=== PATIENT | male | born 1955 | race Caucasian/White ===

== ENCOUNTER 2017-07-12 11:19 | Outpatient (CLI) | payer OTHER ==
--- NOTE | 2017-07-12 12:29 | MRI ---
MRI LEFT SHOULDER WITHOUT CONTRAST: Date: 07/12/17 HISTORY: S49.92XD, injury left shoulder. Injury 6 weeks ago. Pain. COMPARISON: Shoulder radiographs dated 05/29/17. FINDINGS: Biceps Tendon: There is attrition of the extraarticular biceps tendon. No normal intraarticular biceps tendon is pre sent. Glenoid Labrum: There is a posterior labral tear involving the entire posterior labrum from posterior-superior to pos terior-inferior. Small posterior-superior paralabral cyst. Rotator Cuff: Full thickness, full width tear supraspinatus tendon with tendons retracted to the mid humeral head. There is a traction cyst greater tuberosity. Extensive interstitial tearing and volume loss at the in fraspinatus tendon with myotendinous intramuscular cyst. Same is true for the supraspinatus tendon wi th a myotendinous intramuscular cyst. Muscles: There is mild volume loss of the supraspinatus muscle, although evaluation is limited as the majority of the fibers are retracted. No significant fatty infiltration. Bones: No fracture or malalignment. Moderate degenerative disease of acromioclavicular joint. Normal glenoid version. IMPRESSION: 1. Full thickness, full width tear of supraspinatus tendon with fibers retracted to the mid humeral head. There is mild volume loss of supraspinatus muscle with minimal fatty infiltration. 2. Rupture of the intraarticular biceps tendon with the extraarticular biceps tendon atretic and sca rred to the intertrabecular groove. 3. Posterior labral tear, posterior-superior and posterior-inferior with a posterior-superior parala bral cyst. POS: [facility]
== END 2017-07-12 11:20 | disposition home or self-care (01) ==
LOC: MRI 11:19
PROVIDERS: ATTEND Nurse Practitioner Family
DX: S49.92XD Unspecified injury of left shoulder and upper arm, subsequent encounter (principal); S43.402A Unspecified sprain of left shoulder joint, initial encounter; S46.912A Strain of unspecified muscle, fascia and tendon at shoulder and upper arm level, left arm, initial encounter

== ENCOUNTER 2017-08-15 08:47 | Outpatient (CLI) | payer OTHER ==
[2017-08-15 10:02] LABS: #Basophils 0.1 thou/uL (0.0-0.2); #Eosinphils 0.4 thou/uL (0.0-0.7); #Lymphocytes 2.4 thou/uL (1.20-3.40); #Monocytes 0.5 thou/uL (0.11-0.59); #Neutrophils 2.9 thou/uL (1.40-6.50); %Basophils 1.9 % (0.0-1.0); %Eosinophils 6.1 % (0.0-10.0); %Lymphocytes 37.6 % (21.0-51.0); %Monocytes 8.4 % (0.0-10.0); Hemoglobin 16.7 g/dL (14.0-18.0); Mean Corpuscular HGB CONC 34.6 g/dL (32.0-36.0); Mean Corpuscular Hemoglobin 31.4 pg (27.0-31.0); Mean Corpuscular Volume 90.9 fl (80.0-94.0); Mean Platelet Volume 7.6 fL (7.4-10.4); Platelet Count 244 thou/uL (130-400); RBC Distribution Width 12.2 % (11.5-14.5); Red Blood Cell (RBC) Count 5.32 mill/uL (4.70-6.10); White Blood Cell (WBC) Count 6.3 thou/uL (4.8-10.8)
[2017-08-15 10:19] LABS: Anion Gap 12 mmol/L (10-20); BUN (Urea Nitrogen) 13 mg/dL (8.4-25.7); Calc. Creatinine Clearance 0 mL/min (70-130); Calcium 9.1 mg/dL (7.8-10.44); Carbon Dioxide 26 mmol/L (23-31); Chloride 105 mmol/L (98-107); Estimated GFR-MDRD 79; Glucose 105 mg/dL (80-115); Potassium 4.7 mmol/L (3.5-5.1); Sodium 138 mmol/L (136-145)
--- NOTE | 2017-08-15 15:45 | EKG ---
Test Reason : Blood Pressure : / mmHG Vent. Rate : 074 BPM Atrial Rate : 074 BPM P-R Int : 172 ms QRS Dur : 106 ms QT Int : 396 ms P-R-T Axes : 041 -07 038 degrees QTc Int : 439 ms Normal sinus rhythm Normal ECG No previous ECGs available Confirmed by WILLIE SALDIVAR ([id number]) on 08/15/2017 3:45:12 PM Referred By: IERO Confirmed By:WILLIE SALDIVAR
== END 2017-08-15 08:48 | disposition home or self-care (01) ==
LOC: LABBT 08:47
PROVIDERS: ATTEND Orthopaedic Surgery
DX: Z01.818 Encounter for other preprocedural examination (principal); M75.102 Unspecified rotator cuff tear or rupture of left shoulder, not specified as traumatic
CPT/HCPCS: 80048; 85025; 93005; 93010

== ENCOUNTER 2017-08-17 05:57 | Day surgery (SDC) | payer OTHER ==
[2017-08-15 09:00] VITALS: BMI 35.9
[2017-08-17] MEDS ORDERED: Vancomycin HCl 1.5 GM in Sodium Chloride 0.9% 250 ML 300 ML IVPB SCH (06:30)
[2017-08-17] MEDS ORDERED: CEFAZOLIN/Water 2 GM/20 ML SYRINGE ONE (06:36)
[2017-08-17] MEDS ORDERED: Fentanyl 100 MCG/2 ML VIAL ONE ×2 (06:38→07:25)
[2017-08-17] MEDS ORDERED: Midazolam HCl 2 mg/2 ml Vial ONE (06:38)
[2017-08-17] MEDS ORDERED: Lidocaine 1% w/Epinephrine 1:200K 30 ML VIAL ONE (06:38)
[2017-08-17] MEDS ORDERED: Zolpidem Tartrate 5 MG TAB PO PRN (07:16)
[2017-08-17] MEDS ORDERED: Ropivacaine 0.2% 550 ML 550 ML NERVE BLCK SCH (07:16)
[2017-08-17] MEDS ORDERED: Promethazine HCl 25 MG/ML VIAL IM PRN (07:16)
[2017-08-17] MEDS ORDERED: HYDROcodone/Acetaminophen 10/325 mg Tablet PO PRN ×2 (07:16)
[2017-08-17] MEDS ORDERED: Ondansetron HCl/PF 4 MG/2 ML Vial IVP PRN (07:16)
[2017-08-17] MEDS ORDERED: traMADol HCl 50 MG TAB PO PRN ×2 (07:16)
[2017-08-17] MEDS ORDERED: Ketorolac Tromethamine 30 MG/ML VIAL IVP PRN (07:16)
[2017-08-17] MEDS ORDERED: Fentanyl 100 MCG/2 ML VIAL IV PRN (07:17)
--- NOTE | 2017-08-17 10:45 | OP ---
DATE OF PROCEDURE: 08/17/2017 PREOPERATIVE DIAGNOSES: Left shoulder impingement, large rotator cuff tear, and biceps tendon tear w ith auto-tenodesis in the bicipital groove. POSTOPERATIVE DIAGNOSES: Left shoulder impingement, large rotator cuff tear, and biceps tendon tear with auto-tenodesis in the bicipital groove. PROCEDURE PERFORMED: Left shoulder open subacromial decompression followed by open rotator cuff repa ir. SURGEON: Vijay Aquino M.D. WIRE STRANDER: Thomas Borges PA-C. BLOOD LOSS: Less than 50 mL. COMPLICATIONS: None. He did have general anesthetic. He had a preoperative block. IMPLANTS: Include 2 titanium double-loaded rotator cuff anchors as well as two 4.75 BioComposite Swi veLock anchors for double row repair. These were all Ar[employer]rex devices. CONDITION: He did go to the recovery room in stable condition. INDICATIONS: A 61-year-old active male who has been having problems with pain and weakness in the le ft arm, was found to have a large rotator cuff tear and at this time opted to have surgery. OPERATIVE PROCEDURE: After all appropriate consent forms were explained and signed, he was taken to the operating room and at this time was given general anesthetic. Once the level of anesthesia was a ppropriate, he was placed in modified beach chair position with all bony prominences well-padded. Th e left shoulder and upper extremity were then prepped and draped in standard surgical fashion. Incis ion was made on top of the shoulder down through skin and the Bovie was used to coagulate any brisk v enous bleeding. The deltoid fascia was then opened sharply and dissection with a [place] was used to s plit the deltoid fibers in line to obtain access to the subacromial space. A Miller was placed und erneath the acromion and anterior and inferior acromioplasty was performed using the saw and the rasp . At this time, we were able to visualize our large rotator cuff tear. Bursal tissue was removed. At this time, we gained access to our rotator cuff tear. There was a large crescent-shaped tear incl uding the entire supraspinatus with significant retraction and this also went back into the infraspin atus tendon. Inside the joint, the humeral head and glenoid were found to be in good condition. The re was no attachment of the biceps tendon on top of the glenoid and the biceps was found to be auto t enodesed into the subacromial space. Therefore, we did not do anything else to the biceps tendon. Lew denis then used a combination of scissors and a 15 blade to cut off the entire edge of the rotator cuff t ear to give us good bleeding tissue. At this time, a rongeur and curet were used to clean off our in sertion site and we did remove approximately 5 mm of articular cartilage because this tear despite be ing mobilized from the inferior and superior surfaces was unable to be brought in anatomic position, but with no tension, it was able to be repaired approximately 5 mm medial. Once everything had been prepared, we then placed 2 [id number] sutures posteriorly to close a little dog-ear and followed by placing our two titanium anchors right off our new articular margin and running all the sutures thro ugh the cuff in mattress fashion. Once these were all tied, we then used two 4.75 SwiveLocks lateral ly for double row repair. Once this was done, the arm was taken through range of motion and was foun d to have a nice repair. No tension on the tendon repair with the arm at the side, and at this time, we thoroughly irrigated with saline solution followed by a running multiple Ethibond sutures through our deltoid tissue and up through the acromion for a tendon to bone repair. We open ran this with a running #1 Vicryl suture. We then thoroughly irrigated some more. We then used some 2-0 Vicryl and mehdi to close skin. A bulky sterile dressing was applied. The patient was then placed in a shou lder sling with an abduction pillow. He was awakened and taken to the recovery room in stable condit ion. All counts were correct at the end of the case. He received preoperative IV antibiotics.
== END 2017-08-17 12:47 | disposition home or self-care (01) ==
LOC: SDC 05:57
PROVIDERS: ATTEND Orthopaedic Surgery
PROC: 0LM20ZZ Reattachment of Left Shoulder Tendon, Open Approach (ICD-10-PCS; principal; 2017-08-17)
PROC: 0PB60ZZ Excision of Left Scapula, Open Approach (ICD-10-PCS; principal; 2017-08-17)
DX: M75.122 Complete rotator cuff tear or rupture of left shoulder, not specified as traumatic (principal); M75.42 Impingement syndrome of left shoulder; S46.119A Strain of muscle, fascia and tendon of long head of biceps, unspecified arm, initial encounter; Z98.890 Other specified postprocedural states
CPT/HCPCS: A4306; C1713; J2250; J2795; J3010; J3370; J7050

== ENCOUNTER 2018-07-19 08:59 | Outpatient (CLI) | payer OTHER ==
--- NOTE | 2018-07-19 11:18 | MRI ---
MRI OF RIGHT SHOULDER PERFORMED WITHOUT CONTRAST ENHANCEMENT: History: Shoulder pain since May, after patient fell on shoulder. FINDINGS: There are moderate AC joint hypertrophic changes present. There is a massive rotator cuff tear involv ing the entire supra and majority of the infra spinatus tendon. The tendon is retracted by approximat clarice 3.8 cm. The AP dimension of this tear is approximately 3.5 cm. The subscapularis tendon is intact . I do not identify any definite intraarticular portion of the biceps tendon. There appears to be a t iny tendon seen in the more distal aspect of the bicipital groove. There is some mild subscapularis muscle atrophy. The supra and infraspinatus muscles do not show any significant atrophic change. There are edema changes extending into the muscle belly of the infraspin atus. There is a fairly extensive labral tear. It begins at the superior labrum and extends into at least t he posterior inferior labrum, probably also involving the anterior inferior labrum. Small joint effus ion is seen. IMPRESSION: Massive rotator cuff tear involving the majority of the supra and infra spinatus tendon. There may be a few posterior fibers of the infraspinatus tendon that may still be intact. 2. 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 3. Mild subscapularis muscle atrophy. The subscapularis tendon is intact. 4. An intraarticular portion of the biceps tendon is not identified. It is felt to be torn only a sma ll component of the biceps tendon is seen in the lower portion of the bicipital groove. POS: [facility]
== END 2018-07-19 09:00 | disposition home or self-care (01) ==
LOC: BICMRI 08:59
PROVIDERS: ATTEND Nurse Practitioner Family
DX: S49.91XD Unspecified injury of right shoulder and upper arm, subsequent encounter (principal); S46.911A Strain of unspecified muscle, fascia and tendon at shoulder and upper arm level, right arm, initial encounter; S43.491A Other sprain of right shoulder joint, initial encounter; M19.011 Primary osteoarthritis, right shoulder; M62.511 Muscle wasting and atrophy, not elsewhere classified, right shoulder

== ENCOUNTER 2019-10-29 14:22 | Emergency (ER) | payer OTHER ==
--- NOTE | 2019-10-29 15:52 | ULT ---
Venous duplex sonogram left lower extremity HISTORY: Left leg pain and edema. FINDINGS: The left common femoral vein and greater saphenous junction were evaluated along with the f emoral, deep femoral, popliteal, and posterior tibial veins. There is good color and spectral Doppler flow, compression, and augmentation. IMPRESSION : Normal exam.
== END 2019-10-29 16:24 | disposition home or self-care (01) ==
LOC: ERS 14:22
DX: M79.662 Pain in left lower leg (principal); E78.5 Hyperlipidemia, unspecified; E78.00 Pure hypercholesterolemia, unspecified; E03.9 Hypothyroidism, unspecified; I10 Essential (primary) hypertension; F17.290 Nicotine dependence, other tobacco product, uncomplicated; Z79.82 Long term (current) use of aspirin; Z79.899 Other long term (current) drug therapy
CPT/HCPCS: 36415; 84132; 85379; 93005

== ENCOUNTER 2023-06-07 07:26 | Outpatient (CLI) | payer MEDICARE | END 2023-06-07 07:27 | disposition home or self-care (01) | LOC: BICCT 07:26 | PROVIDERS: ATTEND Internal Medicine | DX: N20.0 Calculus of kidney (principal) | CPT/HCPCS: 74176 ==

== ENCOUNTER 2025-03-31 09:01 | Outpatient (CLI) | payer OTHER ==
[2025-03-31 09:40] LABS: Estimated GFR - POC 65.0
== END 2025-03-31 09:02 | disposition home or self-care (01) ==
LOC: SCSMRI 09:01
PROVIDERS: ATTEND Otolaryngology Plastic Surgery within the Head & Neck
DX: R42 Dizziness and giddiness (principal); R90.82 White matter disease, unspecified; I67.82 Cerebral ischemia
CPT/HCPCS: 36415; 70553; 76376; 82565

== ENCOUNTER 2025-05-12 12:24 | Outpatient (CLI) | payer OTHER | END 2025-05-12 12:25 | disposition home or self-care (01) | LOC: SCSMRI 12:24 | PROVIDERS: ATTEND Internal Medicine | DX: M47.25 Other spondylosis with radiculopathy, thoracolumbar region (principal); M43.16 Spondylolisthesis, lumbar region; M48.061 Spinal stenosis, lumbar region without neurogenic claudication; M24.29 Disorder of ligament, other specified site; M47.26 Other spondylosis with radiculopathy, lumbar region; M51.16 Intervertebral disc disorders with radiculopathy, lumbar region; M51.17 Intervertebral disc disorders with radiculopathy, lumbosacral region; M47.27 Other spondylosis with radiculopathy, lumbosacral region | CPT/HCPCS: 72148 ==